=== PATIENT | female | born 1965 | race Caucasian/White ===

== ENCOUNTER 2018-07-24 09:18 | Emergency (ER) | payer OTHER ==
[2018-07-24 10:43] LABS: URINE BLOOD (Dip) POC Negative (NEGATIVE); URINE GLUCOSE (Dip) POC Negative (NEGATIVE); URINE KETONES (Dip) POC Negative (NEGATIVE); URINE LEUKOCYTE EST (Dip) POC Negative (NEGATIVE); URINE NITRITE (Dip) POC Negative (NEGATIVE); URINE TOTAL PROTEIN POC Negative (NEGATIVE)
[2018-07-24] MEDS: KETOROLAC 30 MG INJ IM (10:47)
== END 2018-07-24 12:21 | disposition home or self-care (01) ==
LOC: FTE 09:18
DX: M54.31 Sciatica, right side (principal)
CPT/HCPCS: 72100; 81003; 81025; 96372; 99284-25